=== PATIENT | male | born 1970 | race Caucasian/White ===

== ENCOUNTER → 2023-05-31 | Outpatient (CLI) | payer OTHER ==
[~2023-05-31] MED LIST: Iohexol 300 - 10 ML VIAL ONE
== END ==
LOC: MHCPAIN 08:38
DX: M46.1 Sacroiliitis, not elsewhere classified (principal); M53.3 Sacrococcygeal disorders, not elsewhere classified; M47.898 Other spondylosis, sacral and sacrococcygeal region
CPT/HCPCS: G0260; J0665; J1040; Q9967